=== PATIENT | female | born 1995 | race Caucasian/White ===

== ENCOUNTER 2018-04-09 15:24 | Emergency (ER) | payer OTHER ==
[~2018-04-09] VITALS: Ht 162.6 cm; Wt 52.2 kg
[2018-04-09 16:07] VITALS: BP 138/90
[2018-04-09] MEDS ORDERED: Methocarbamol 500mg tab ORAL ONE (16:15)
--- NOTE | 2018-04-09 16:43 | Emergency Room Report ---
History of Present Illness General Chief Complaint: Pain Source: Patient Present Illness HPI 23-year-old female patient presents ER complaining of left scapular pain for the Past 2 weeks. Reports pain is been increasing intensity and feels like "muscle tightness". Reports no history of injury or trauma. Reports history of scoliosis. Denies history of back surgery. Denies radiation of pain symptoms. Denies pain with movement and shoulder. Denies other acute symptoms. Reports right-hand dominant. denies chest pain, shortness of breath. Allergies: Coded Allergies: No Known Allergies (Unverified , 04/09/18) Patient History Past Medical History: see triage record Last Menstrual Period: March 2018 Now: No Reviewed Nursing Documentation: PMH: Agreed; PSxH: Agreed Nursing Documentation-PMH Past Medical History: No Stated History Review of Systems All Other Systems: negative except mentioned in HPI Physical Exam Vital Signs Date Time Temp Pulse Resp B/P (MAP) Pulse Ox O2 Delivery O2 Flow Rate FiO2 04/09/18 15:37 98.4 86 20 138/90 100 Room Air 98.4 Sp02 EP Interpretation: reviewed, normal General Appearance: well appearing, no apparent distress, alert, GCS 15, non- toxic Head: normocephalic, atraumatic Eyes: bilateral eye normal inspection, bilateral eye PERRL ENT: hearing grossly normal, normal pharynx, no angioedema, normal voice, uvula midline, moist mucus membranes Neck: full range of motion Respiratory: lungs clear, normal breath sounds, no rhonchi, no respiratory distress, no accessory muscle use, no wheezing, speaking full sentences Cardiovascular #1: regular rate, rhythm, no edema Cardiovascular #2: 2+ radial (R), 2+ radial (L) Musculoskeletal: back normal - scoliosis, no spinous process tenderness, digits /nails normal, gait/station normal, normal range of motion, non-tender, other - AIN, PIN, radial nerves intact, no wrist drop, positive Heranndez sign, negative sulcus, no skin tenting, mild medial winging of the scapula noted, tender - and left scapula Neurologic: alert, oriented x3, responsive, motor strength/tone normal, sensory intact Psychiatric: mood/affect normal Skin: no rash Medical Decision Making PA Attestation Dr. Tijerina is my supervising Physician whom patient management has been discussed with. Diagnostic Impression: Primary Impression: Pain in scapula ER Course Pt. presents to the ED c/o left scapular pain. Ddx considered but are not limited to fracture, sprain, strain, contusion, dislocation. negative sulcus sign, negative skin tenting, low suspicion for dislocated shoulder. On physical exam, possible mild winging of left scapula noted. No history of injury or trauma, history of scoliosis, may be due to underdeveloped muscle. low suspicion for nerve injury at this time. Needs outpatient follow-up and treatment. Vital signs: are WNL, pt. is afebrile Ordered X-ray and pain medication. ER COURSE Provided with pain medication. An X-ray of the right shoulder negative for acute disease per the preliminary reading. advised patient and possible etiology of symptoms including muscle spasm vs underdeveloped muscle vs long thoracic nerve injury vs shoulder impingement. Advised patient to follow up with primary care provider and get referral to Ortho for further MRI imaging and treatment. Discuss PT referral. Patient instructed on RICE method: rest, ice, compression, elevation. Patient instructed on rest, ice and heat. Patient instructed to be WBAT Work note provided. Contact information for orthopedic urgent care provided, follow-up with urgent care if unable to followup with primary care provider and get referral to internal corrosion specialist. Followup with primary care provider. Discuss referral to ortho/pain management/ PT as needed. Discuss further imaging with MRI/CT as needed. DISCHARGE: -Rx provided for Tylenol for pain symptoms. -Rx provided for Methocarbamol. SE drowsiness, do not drink, drive, or operate heavy machinery while using. At this time pt. is stable for d/c to home. Patient is resting comfortably, in no acute distress, nontoxic appearing, talking without difficulty. Will provide printed patient care instructions, and any necessary prescriptions. Patient instructed to follow with primary care provider in 3 - 5 days and to request further follow-up as needed. Care plan and follow up instructions have been discussed with the patient prior to discharge. Take medications as directed. Patient questions asked and answered. Patient reports understanding and agreement to treatment plan. ER precautions given, patient instructed to return to ER immediately for any new or worsening of symptoms. - Please note that this Emergency Department Report was dictated using [employer] technology software, occasionally this can lead to erroneous entry secondary to interpretation by the dictation equipment. Other X-Ray Diagnostic Results Other X-Ray Diagnostic Results : X-Ray ordered: left shoulder # of Views/Limited Vs Complete: 3 View Indication: Pain EP Interpretation: Yes PA Xray: Interpretation reviewed, by supervising MD, and agrees with findings. Interpretation: no dislocation, no soft tissue swelling, no fractures Impression: No acute disease MARSHA Scribe Text Abdias Can PA-C Last Vital Signs Date Time Temp Pulse Resp B/P (MAP) Pulse Ox O2 Delivery O2 Flow Rate FiO2 04/09/18 16:21 98.4 04/09/18 16:07 84 20 138/90 100 Room Air Status: improved Disposition: HOME, SELF-CARE Condition: Stable Scripts Acetaminophen* (TYLENOL EXTRA STRENGTH*) 500 Mg Tablet 500 MG ORAL Q8H PRN for Prn Headache/Temp > 101, #30 TAB 0 Refills Prov: Mario Can 04/09/18 Methocarbamol* (ROBAXIN*) 500 Mg Tablet 500 MG PO TID, #21 TAB 0 Refills Prov: Mario Can 04/09/18 Patient Instructions: Scapular Winging With Rehab-SportsMed, Shoulder Pain, [id number], Shoulder Range of Motion Exercises, Snapping Scapula-SportsMed Additional Instructions: Patient instructed to follow up with primary care provider and discuss further referral to orthopedics. discuss further imaging and referrals at that time. Patient instructed on RICE method: rest, ice, compression, elevation. Patient instructed to WBAT. Take medications as directed. Patient questions asked and answered. ER precautions given, patient instructed to return to ER immediately for any new or worsening of symptoms. Mario Can Apr 09, 2018 16:43
[2018-04-09] MEDS ORDERED: ROBAXIN500 MG PO (17:15)
[2018-04-09] MEDS ORDERED: TYLENOL EXTRA500 MG ORAL (17:15)
[2018-04-09 17:25] VITALS: BP 125/84
--- NOTE | 2018-04-10 08:29 | Diagnostic Imaging Report ---
Indication: Shoulder pain Technique: 3 views of the left shoulder Comparison: none Findings: No acute fractures. No dislocations. The joint spaces are preserved Impression: Negative
== END 2018-04-09 17:29 | disposition home or self-care (01) ==
LOC: EMR 16:16
DX: M25.512 Pain in left shoulder (principal)
CPT/HCPCS: 99283